=== PATIENT | male | born 1995 | race Caucasian/White ===

== ENCOUNTER 2017-09-15 09:59 | Emergency (ER) | payer OTHER ==
[~2017-09-15] VITALS: Ht 193 cm; Wt 102.0 kg
[2017-09-15 11:03] LABS: HEMOGLOBIN 16.2 G/DL (12.5-16.6); MCH 30.9 PG (29.0-34.0); MCV 85.7 FL (86-99); PLATELET COUNT 212 K/uL (156-360); RBC DIS.WIDTH-CV 11.9 % (11.8-14.6); RBC DIS.WIDTH-SD 37.3 % (39-53); RED BLOOD COUNT 5.25 M/uL (4.00-5.50); WHITE BLOOD COUNT 9.1 K/uL (4.1-10.2)
[2017-09-15 11:08] LABS: APPEARANCE CLEAR ((CLEAR)); BILIRUBIN NEGATIVE; BLOOD NEGATIVE; COLOR STRAW ((YELLOW)); GLUCOSE (STRIP) NEGATIVE; KETONES NEGATIVE; LEUKOCYTES NEGATIVE; NITRITE NEGATIVE; PROTEIN (STRIP) NEGATIVE; SPECIFIC GRAVITY 1.006 (1.000-1.030); UCUL ADDED? NO; UROBILINOGEN 0.2 MG/DL (0.2-1.0)
[2017-09-15 11:13] LABS: CHLORIDE 105 mEq/L (99-109); POTASSIUM 3.8 mEq/L (3.7-5.4); SODIUM 140 mEq/L (136-147)
[2017-09-15 11:15] LABS: GLUCOSE 117 mg/dL (70-99); TOTAL PROTEIN 7.9 g/dL (6.4-8.3)
[2017-09-15 11:17] LABS: TOTAL BILIRUBIN 0.5 mg/dL (0.0-1.0)
[2017-09-15 11:18] LABS: ALKALINE PHOSPHATASE 90 IU/L (3-129)
[2017-09-15 11:19] LABS: CREATININE 0.9 mg/dL (0.6-1.3); GFR ESTIMATE (CALCULATED) > 59 mL/min/ (58.99-99999)
[2017-09-15 11:20] LABS: AST (GOT) 21 IU/L (2-34); UREA NITROGEN (BUN) 9 mg/dL (9-23)
[2017-09-15 11:22] LABS: ALT (GPT) 21 IU/L (3-49); LIPASE 9 U/L (1.0-51.0)
[2017-09-15] MEDS ORDERED: BENTYL10 MG PO ×2 (12:50→12:52)
[2017-09-15] MEDS ORDERED: COLACE100 MG PO ×2 (12:50→12:52)
[2017-09-15 13:03] VITALS: BP 106/61
[2017-09-16] MEDS ORDERED: ZOFRAN ODT4 MG PO (11:18)
== END 2017-09-15 13:12 | disposition home or self-care (01) ==
LOC: EME 09:59
DX: R10.84 Generalized abdominal pain (principal); K21.9 Gastro-esophageal reflux disease without esophagitis; F17.200 Nicotine dependence, unspecified, uncomplicated
CPT/HCPCS: 74177; 80053; 81003; 83690; 85027; 99281; 99284; J2405; J3010

== ENCOUNTER 2017-09-16 08:22 | Emergency (ER) | payer OTHER ==
[~2017-09-16] VITALS: Ht 193 cm; Wt 101.7 kg
[~2017-09-16 08:22] MED LIST: BENTYL10 MG PO; COLACE100 MG PO
[2017-09-16 08:48] LABS: HEMATOCRIT 46.1 % (38.0-50.0); HEMOGLOBIN 16.5 G/DL (12.5-16.6); MCH 31.1 PG (29.0-34.0); MCHC 35.8 G/DL (30.0-36.0); MCV 86.8 FL (86-99); PLATELET COUNT 213 K/uL (156-360); RBC DIS.WIDTH-CV 12.3 % (11.8-14.6); RBC DIS.WIDTH-SD 38.8 % (39-53); RED BLOOD COUNT 5.31 M/uL (4.00-5.50)
[2017-09-16 08:56] LABS: ALBUMIN 4.8 g/dL (3.2-4.8); CHLORIDE 104 mEq/L (99-109); POTASSIUM 4.3 mEq/L (3.7-5.4); SODIUM 140 mEq/L (136-147)
[2017-09-16 08:59] LABS: GLUCOSE 100 mg/dL (70-99); TOTAL PROTEIN 7.7 g/dL (6.4-8.3)
[2017-09-16 09:01] LABS: TOTAL BILIRUBIN 0.5 mg/dL (0.0-1.0)
[2017-09-16 09:02] LABS: ALKALINE PHOSPHATASE 87 IU/L (3-129); CREATININE 0.9 mg/dL (0.6-1.3); GFR ESTIMATE (CALCULATED) > 59 mL/min/ (58.99-99999)
[2017-09-16 09:03] LABS: UREA NITROGEN (BUN) 7 mg/dL (9-23)
[2017-09-16 09:04] LABS: AST (GOT) 19 IU/L (2-34)
[2017-09-16 09:05] LABS: ALT (GPT) 21 IU/L (3-49)
[2017-09-16 09:06] LABS: LIPASE 8 U/L (1.0-51.0)
[2017-09-16 09:43] LABS: APPEARANCE CLEAR ((CLEAR)); BILIRUBIN NEGATIVE; BLOOD NEGATIVE; COLOR YELLOW ((YELLOW)); GLUCOSE (STRIP) NEGATIVE; KETONES NEGATIVE; LEUKOCYTES NEGATIVE; NITRITE NEGATIVE; PROTEIN (STRIP) NEGATIVE; SPECIFIC GRAVITY 1.019 (1.000-1.030); UCUL ADDED? NO
[2017-09-16] MEDS ORDERED: ZOFRAN ODT4 MG PO (11:18)
[2017-09-16 11:32] VITALS: BP 112/60
== END 2017-09-16 11:33 | disposition home or self-care (01) ==
LOC: EME 08:22
DX: R10.31 Right lower quadrant pain (principal); R11.2 Nausea with vomiting, unspecified; R19.7 Diarrhea, unspecified; F17.200 Nicotine dependence, unspecified, uncomplicated; Z83.79 Family history of other diseases of the digestive system
CPT/HCPCS: 74177; 80053; 81003; 83690; 85027; 99281; 99285; J1885; J2405; J3010